=== PATIENT | male | born 1985 | race Two or more races ===

== ENCOUNTER 2024-05-25 05:01 | Emergency (ER) | payer SELFPAY ==
[2024-05-25 05:27] VITALS: BP 138/93; PULSE 96; RESP 18; TEMP 36.6; O2SAT 97; BMI 25.7
--- NOTE | 2024-05-25 07:01 | ED_ITS ---
HPI - Skin/Abscess/Foreign Bdy General Chief complaint: Skin/Abscess/Foreign Body Stated complaint: rash all over body Time Seen by Provider: 05/25/24 06:55 Source: patient Mode of arrival: ambulatory Limitations: no limitations History of Present Illness ED Provider: JACK AVILA narrative: 38 yo male with no sig PMH here with c/o itchy rash for 5 days worse at night then improved happens in back of knees resolved on arms hx of same as a kid when he wears jeans. No issues on hands or feet. Mostly behind knees and thighs. Denies known exposures. MD complaint: rash Onset (ago): day(s) (5) Location: LLE and RLE Severity: mild Quality: pruritic Relieving factors: none Exacerbating factors: none Context: other (similar rash as a child) Associated symptoms: denies other symptoms Treatments prior to arrival: none Related Data Previous Rx's ?Medication ?Instructions ?Recorded hydrocortisone 1 % topical cream 1 appl topical TID PRN itching 05/25/24 #28.35 grams Allergies Allergy/AdvReac Type Severity Reaction Status Date / Time No Known Allergies Allergy Verified 05/25/24 05:28 Review of Systems Review of Systems: Constitutional : No Fever, No Chills ENT/Mouth : No sore throat, No Rhinorrhea Eyes: No Eye Pain, No Swelling, No Redness Cardiovascular : No Chest Pain, No SOB Respiratory : No Cough, No Sputum Gastrointestinal : No Nausea, No Vomiting, No Diarrhea, No abdominal Pain Genitourinary : No Dysuria, No Hematuria Musculoskeletal : No joint pain, No Myalgias, No Joint Swelling Skin : No Skin Lesions, positive skin rash Neuro : No Weakness, No Numbness, No Headache All other systems reviewed and are negative [facility] Past Medical History Attestation statement: The following information was validated with the patient. Source: old records reviewed Medical History No pertinent past medical history Social History Social History (Updated 05/25/24 @ 07:19 by Stefani Emery DO) Patient Tobacco Use Status: Tobacco use Unknown Physical Exam Vital Signs: Vital Signs: Last Vital Signs Temp 97.8 F 05/25/24 05:27 Pulse 96 05/25/24 05:27 Resp 18 05/25/24 05:27 BP 138/93 H 05/25/24 05:27 Pulse Ox 97 05/25/24 05:27 O2 Del Method Room Air 05/25/24 05:27 BMI result Body Mass Index 25.7 Appearance: Alert. Oriented X3. No acute distress. Eyes: Pupils equal, round and reactive to light. ENT: Pharynx normal. Neck: Normal inspection. Neck supple. CVS: Pulses normal. Respiratory: No respiratory distress. Abdomen: Soft and nontender. Skin: Skin warm and dry. Normal skin color. excoriated red raised patches on back of both knees and thighs no rash on palms or nails nothing seen anywhere else Extremities: No lower extremity edema. Neuro: Oriented X 3. No motor deficit. No sensory deficit. Medical Decision Making Medical Decision Making [facility] Narrative: 38 yo male with no sig PMH here with c/o nonspecific pruritic rash at this time will obtain RPR but start on hydrocortisone - he is not toxic has no systemic symptoms no signs of cellulitis. Differential Diagnosis Differential Diagnoses: The differential diagnosis associated with the presentation includes eczema, syphillis Lab Data [facility] Lab Attestation statement: I reviewed the patient's lab results. Prescription Management I considered prescription management with: Other Discharge Plan Discharge Clinical Impression: Dermatitis Patient Disposition: Home, Self-Care Instructions: Dermatitis (ED) Additional Instructions: we sent of syphillis screening if positive we will call you at home at this time non specific rash please return for worsening pain or swelling fevers or any other concerns. Prescriptions: New hydrocortisone 1 % cream 1 appl topical TID PRN (Reason: itching) Qty: 28.35 0RF Print Language: Maltese
[2024-05-25 07:23] VITALS: BP 130/70; PULSE 80; RESP 16; TEMP 36.8; O2SAT 99
[2024-05-25 08:42] LABS: Syphilis Screen Nonreactive (Nonreactive)
== END 2024-05-25 07:24 | disposition home or self-care (01) ==
PROVIDERS: Emergency Provider Emergency Medicine
DX: L30.9 Dermatitis, unspecified (principal); R21 Rash and other nonspecific skin eruption
CPT/HCPCS: 36415; 86780; 99282; 99283

== ENCOUNTER 2024-05-30 00:03 | Emergency (ER) | payer SELFPAY ==
[2024-05-30 00:17] VITALS: BP 144/104; PULSE 82; RESP 16; TEMP 36.8; O2SAT 100; BMI 25.7
[2024-05-30 00:48] VITALS: BP 143/100; PULSE 86; RESP 17; TEMP 36.8; O2SAT 99
--- NOTE | 2024-05-30 01:31 | ED.SKABFB ---
HPI - Skin/Abscess/Foreign Bdy General Chief complaint: Skin/Abscess/Foreign Body Stated complaint: rash 2 weeks Time Seen by Provider: 05/30/24 01:05 History of Present Illness HPI narrative: Patient is a 38-year-old male presents today with having rash over his axilla bilaterally, rash over the elbow, over the wrist over the bends of the knees now it is extending into the chest and abdomen. There is no mucosal membrane involvement. Extremely pruritic. Had a history of similar rash. Patient was seen about a week ago. At that time cream was given. Patient never actually picked it up. Had a syphilis test done at the hospital. Related Data Previous Rx's ?Medication ?Instructions ?Recorded hydrocortisone 1 % topical cream 1 appl topical TID PRN itching 05/25/24 #28.35 grams prednisone 20 mg tablet 40 mg (2 x 20 mg) PO DAILY #10 tabs 05/30/24 Allergies Allergy/AdvReac Type Severity Reaction Status Date / Time No Known Allergies Allergy Verified 05/30/24 00:22 Review of Systems Review of Systems: No fever no chills no chest pain or shortness of breath no systemic complaints Yes all other systems are reviewed and are negative [facility] Past Medical History Attestation statement: The following information was validated with the patient. Medical History No pertinent past medical history Social History Social History Patient Tobacco Use Status: Tobacco use Unknown Smoked in Last 30 Days: Yes Advance Directives: No Advance Directives Information Provided: Yes Physical Exam Vital Signs: Vital Signs: Last Vital Signs Temp 98.3 F 05/30/24 00:48 Pulse 86 05/30/24 00:48 Resp 17 05/30/24 00:48 BP 143/100 H 05/30/24 00:48 Pulse Ox 99 05/30/24 00:48 O2 Del Method Room Air 05/30/24 00:48 BMI result Body Mass Index 25.7 Appearance: Alert. Oriented X3. No acute distress. Eyes: Pupils equal, round and reactive to light. ENT: Pharynx normal. Neck: Normal inspection. Neck supple. No lymph nodes noted. No crepitus CVS: Normal heart rate and rhythm. Pulses normal. Normal S1 and S2 Respiratory: No respiratory distress. Breath sounds normal. No Wheezing. No rales Abdomen: Soft and nontender. No rigidity. No distention. good BS x4 Skin: Positive red raised pruritic rash over the axilla, bilateral wrists bilateral elbow and in the bends of the knees. Now extending to the chest abdomen pelvis. They all appear similar. They beryl Extremities: No lower extremity edema. Neurovascular intact to all extremities. No Lacerations. No Rash Neuro: Oriented X 3. No motor deficit. No sensory deficit. Moving all extermities. No slurred speech Medical Decision Making Medical Decision Making [facility] Narrative: No change in environment. Patient's rash most likely secondary to eczema. Will start patient on steroids. Currently in stable condition. No shortness of breath. Patient's previous lab was reviewed. His syphilis test was negative. Differential Diagnosis Differential Diagnoses: The differential diagnosis associated with the presentation includes Eczema, Rick-Negrito, Admission/Observation Consideration of admission/observation: Escalation of care including admission/observation considered External Record Review Prior lab results rechecked Social Determinants Patient?s care significantly limited by Social Determinants of Health including: Inadequate housing and Problems related to primary support group Discharge Plan Discharge Clinical Impression: Eczema Patient Disposition: Home, Self-Care Instructions: Dermatitis (ED) Prescriptions: New prednisone 20 mg tablet 40 mg PO DAILY Qty: 10 0RF No Action hydrocortisone 1 % cream 1 appl topical TID PRN (Reason: itching) Qty: 28.35 0RF Referrals: [facility] [Physician] - 06/01/24 Print Language: French
[2024-05-30] MEDS: predniSONE 20 MG TABLET 40 MG PO (01:34)
[2024-05-30 01:56] VITALS: BP 142/95; PULSE 78; RESP 16; TEMP 36.2; O2SAT 98
[2024-05-30 02:01] VITALS: BP 142/95; PULSE 78; RESP 16; TEMP 36.2; O2SAT 98
== END 2024-05-30 02:03 | disposition home or self-care (01) ==
PROVIDERS: Emergency Provider Emergency Medicine Emergency Medical Services
DX: L30.9 Dermatitis, unspecified (principal); R21 Rash and other nonspecific skin eruption
CPT/HCPCS: 99283; 99284